=== PATIENT | male | born 1990 | race Caucasian/White ===

== ENCOUNTER 2019-06-07 08:10 | Emergency (ER) | payer OTHER ==
[~2019-06-07] VITALS: Ht 167.6 cm; Wt 95.5 kg
[2019-06-07] MEDS ORDERED: NS 1,000 ML IV ONE (08:45)
[2019-06-07] MEDS ORDERED: ISOVUE-370 76% 100ML VIAL (Q9967) As Ordered ONE ×2 (09:15→10:13)
[2019-06-07 09:18] LABS: BASO % 0.4 % (0.0-1.0); EOS # 0.1 10^3/uL (0.0-0.5); EOS % 2.1 % (0.0-3.0); HEMATOCRIT 45.6 % (42.0-52.0); HEMOGLOBIN 15.2 g/dl (13.5-17.5); LYMPH # 1.2 10^3/uL (1.5-5.0); LYMPH % 23.4 % (24.0-44.0); MEAN CORPUSCULAR HEMOGLOBIN 30.3 pg (27.0-33.0); MEAN CORPUSCULAR HGB CONC 33.3 g/dl (32.0-36.5); MONO # 0.3 10^3/uL (0.0-0.8); MONO % 6.3 % (0.0-5.0); NEUTROPHILS # 3.6 10^3/uL (1.5-8.5); NEUTROPHILS % 67.6 % (36.0-66.0); RED BLOOD COUNT 5.01 10^6/uL (4.30-6.10); WHITE BLOOD COUNT 5.3 10^3/uL (4.0-10.0)
[2019-06-07 09:57] LABS: ALBUMIN 4.3 GM/DL (3.2-5.2); BILIRUBIN,DIRECT 0.1 MG/DL (0.0-0.2); BILIRUBIN,TOTAL 0.7 MG/DL (0.2-1.0); TOTAL PROTEIN 7.7 GM/DL (6.4-8.2)
--- NOTE | 2019-06-07 10:17 | REP ---
RIGHT UPPER ARM: Two views of right upper arm performed. Large amount of IV contrast is seen in the soft tissues of the upper arm anteriorly. This is due to a failed, infiltrated IV injection of intravenous contrast material for a CT of the abdomen and pelvis. Underlying osseous structures appear normal. Electronically Signed by Arley Mullen MD 06/07/2019 12:01 P
--- NOTE | 2019-06-07 10:40 | REP ---
Clinical: Right lower quadrant pain. Technique: Axial contrast enhanced images from the lung bases to the pubic symphysis using approximately 75 ml Isovue 370 intravenous contrast material with coronal and sagittal re-formations. Findings: Lung bases are clear. Visualized heart and pericardium normal. Liver, spleen, pancreas, gallbladder, bilateral adrenal glands and kidneys are normal. The enteric system is without obstruction or acute inflammatory process. Normal terminal ileum and appendix are identified in the right lower quadrant. Few scattered sigmoid diverticula noted without acute diverticulitis. Pelvis demonstrates normal bladder and age appropriate prostate/seminal vesicles. No ascites. No free air. No adenopathy. Abdominal aorta and vasculature normal. Musculoskeletal structures are intact. Impression: No acute abdominopelvic pathology appreciated. Normal right lower quadrant structures including normal appendix. No ascites. No adenopathy. No focal inflammatory stranding. Electronically Signed by Saran San MD 06/07/2019 10:32 A
[2019-06-07] MEDS ORDERED: MIRA3350 PO (11:50)
[2019-06-07 12:11] VITALS: BP 141/71
== END 2019-06-07 12:12 | disposition home or self-care (01) ==
LOC: M ED 08:10
DX: K60.2 Anal fissure, unspecified (principal); K92.2 Gastrointestinal hemorrhage, unspecified; F17.210 Nicotine dependence, cigarettes, uncomplicated
CPT/HCPCS: 73060; 74177; 80047; 80076; 81001; 83605; 83690; 85025; 86850; 86900; 86901; 93041; 96360; 96361; 99284; Q9967